=== PATIENT | male | born 1960 | race American Indian/Alaskan Native ===

== ENCOUNTER 2020-01-27 12:50 | Emergency (ER) | payer SELFPAY ==
[2020-01-27 13:03] VITALS: BP 159/101
--- NOTE | 2020-01-27 13:35 | Event Note ---
ED Screening Note ED Screening Note: pt believes he has pancreatitis states he has epigastric abd pain radiating to the back and chest pain states it began yesterday states he drank a pint of vodka and 3-4 beers at 9 AM this morning +nausea +vomiting +diarrhea no fever no blood in stool states he had pancreatitis 3 weeks ago and went to [facility] and reports he had to be admitted PMHx DM, HTN, GERD no allergies to meds This initial assessment/diagnostic orders/clinical plan/treatment(s) is/are subject to change based on patients health status, clinical progression and re- assessment by fellow clinical providers in the ED. Further treatment and workup at subsequent clinical providers discretion. Patient/guardian urged not to elope from the ED as their condition may be serious if not clinically assessed and managed. Initial orders include: labs, EKG
[2020-01-27 14:06] LABS: Basophils # (Auto) 0.1 K/mm3 (0.0-0.1); Eosinophils # (Auto) 0.1 K/mm3 (0.0-0.4); Eosinophils % (Auto) 0.7 % (0.0-4.3); Monocytes # (Auto) 0.4 K/mm3 (0.0-0.8); Monocytes % (Auto) 4.6 % (0.0-7.3)
[2020-01-27 14:27] LABS: Hematocrit 42.2 % (35.5-45.6); Hemoglobin 14.6 gm/dl (11.8-15.2); Lymphocytes # (Auto) 3.8 K/mm3 (1.2-5.4); Lymphocytes % (Auto) 39.6 % (13.4-35.0); Mean Corpuscular HGB Conc 35 % (32-34); Mean Corpuscular Volume 100 fl (84-94); Platelet Count 199 K/mm3 (140-440); Red Blood Count 4.25 M/mm3 (3.65-5.03); Red Cell Distribution Width 14.3 % (13.2-15.2)
[2020-01-27 14:28] LABS: Alanine Aminotransferase 64 units/L (7-56); Albumin 4.5 g/dL (3.9-5); BUN/Creatinine Ratio 13; Blood Urea Nitrogen 9 mg/dL (9-20); Calcium 9.3 mg/dL (8.4-10.2); Hemolysis Index 14
[2020-01-27] MEDS ORDERED: THIAMINE 100 MG, FOLIC ACID 1 MG, MULTIPLE VITAMIN INJ, ADULT 10 ML in SODIUM CHLORIDE ... IV ONE (14:36)
--- NOTE | 2020-01-27 14:39 | Emergency Department Report ---
HPI - General Chief Complaint: Abdominal Pain Time Seen by Provider: 01/27/20 13:32 - HPI HPI: This is a 59-year-old male who presents to the emergency department via EMS with a complaint of upper abdominal pain, and nausea without vomiting, that the jhon ent says has been going on since yesterday. The patient admits to drinking [place] the airport. He has a history of pancreatitis and says that this feels the same. Patient says that he was diagnosed with pancreatitis a few weeks ago and was admitted to a different hospital. He also has a history of [id number] diabetes, hypertension, and GERD. No recent travel or sick contacts at home. He has not taken anything for symptoms prior to presentation. He does not have a primary care physician. The abdominal pain radiates towards the mid back. The pain worsens with certain movements and palpation of the abdomen. No known alleviating factors. Currently he rates his pain at 9 out of 10 in intensity. He denies any fever, dysuria, diarrhea, constipation, chest pain or shortness of breath. ED Past Medical Hx - Past Medical History Hx Hypertension: Yes Hx Diabetes: Yes Hx GERD: Yes Hx Asthma: Yes Additional medical history: PANCREATITS - Surgical History Additional Surgical History: Left knee surgery - Social History Smoking Status: Current Some Day Smoker Substance Use Type: Alcohol - Medications Home Medications: Home Medications Medication Instructions Recorded Confirmed Last Taken Type Acetaminophen [Acetaminophen TAB] 325 mg PO Q4H PRN #10 tablet 12/22/17 Unknown Rx Folic Acid [Folvite] 1 mg PO QDAY #30 tablet 12/22/17 Unknown Rx Thiamine [Vitamin B-1] 100 mg PO QDAY #30 tablet 12/22/17 Unknown Rx ED Review of Systems ROS: Stated complaint: ABDOMEN PAIN Other details as noted in HPI Comment: All other systems reviewed and negative Constitutional: denies: chills, fever Eyes: denies: eye pain, vision change ENT: denies: ear pain, throat pain Respiratory: denies: cough, shortness of breath Cardiovascular: denies: chest pain, palpitations Gastrointestinal: abdominal pain, nausea. denies: vomiting Genitourinary: denies: dysuria, discharge Musculoskeletal: back pain. denies: arthralgia Skin: denies: rash, lesions Neurological: denies: headache, weakness Physical Exam - Physical Exam Vital Signs: Vital Signs 01/27/20 13:00 Temperature 97.9 F Pulse Rate 92 H Respiratory 20 Rate Blood Pressure 159/101 O2 Sat by Pulse 98 Oximetry Physical Exam: GENERAL: The patient is well-developed well-nourished. HENT: Normocephalic. Atraumatic. Patient has moist mucous membranes. EYES: Extraocular motions are intact. NECK: Supple. Trachea is midline. CHEST/LUNGS: Clear to auscultation. There is no respiratory distress noted. HEART/CARDIOVASCULAR: Regular. There is no tachycardia. There is no murmur. ABDOMEN: Abdomen is soft. There is upper abdominal tenderness to palpation. No guarding. Patient has normal bowel sounds. SKIN: Skin is warm and dry. NEURO: The patient is awake, alert, and cooperative. The patient has no focal neurologic deficits. Normal speech. MUSCULOSKELETAL: There is no tenderness or deformity. There is no limitation range of motion. ED Course Vital Signs 01/27/20 13:00 Temperature 97.9 F Pulse Rate 92 H Respiratory 20 Rate Blood Pressure 159/101 O2 Sat by Pulse 98 Oximetry - Reevaluation(s) Reevaluation #1: 01/27/20 18:39 Lab Results 01/27/20 01/27/20 01/27/20 Range/Units 13:48 13:48 13:48 WBC 9.7 (4.5-11.0) K/mm3 RBC 4.25 (3.65-5.03) M/mm3 Hgb 14.6 (11.8-15.2) gm/dl Hct 42.2 (35.5-45.6) % MCV 100 H (84-94) fl MCH 35 H (28-32) pg MCHC 35 H (32-34) % RDW 14.3 (13.2-15.2) % Plt Count 199 (140-440) K/mm3 Lymph % (Auto) 39.6 H (13.4-35.0) % [place] % (Auto) 4.6 (0.0-7.3) % Eos % (Auto) 0.7 (0.0-4.3) % Baso % (Auto) Not Reportable Lymph # (Auto) 3.8 (1.2-5.4) K/mm3 [place] # (Auto) 0.4 (0.0-0.8) K/mm3 Eos # (Auto) 0.1 (0.0-0.4) K/mm3 Baso # (Auto) 0.1 (0.0-0.1) K/mm3 Seg Neutrophils % 54.6 (40.0-70.0) % Seg Neutrophils # 5.2 (1.8-7.7) K/mm3 Sodium 139 (137-145) mmol/L Potassium 3.6 (3.6-5.0) mmol/L Chloride 99.2 (98-107) mmol/L Carbon Dioxide 20 L (22-30) mmol/L Anion Gap 23 mmol/L BUN 9 (9-20) mg/dL Creatinine 0.7 L (0.8-1.3) mg/dL Estimated GFR > 60 ml/min BUN/Creatinine Ratio 13 % Glucose 150 H (75-100) mg/dL Calcium 9.3 (8.4-10.2) mg/dL Total Bilirubin 1.30 H (0.1-1.2) mg/dL AST 77 H (5-40) units/L ALT 64 H (7-56) units/L Alkaline Phosphatase 82 (35-129) units/L Troponin T < 0.010 (0.00-0.029) ng/mL Total Protein 8.0 (6.3-8.2) g/dL Albumin 4.5 (3.9-5) g/dL Albumin/Globulin Ratio 1.3 % Lipase 245 H (13-60) units/L Plasma/Serum Alcohol 0.31 H (0-0.07) % ED Medical Decision Making - Lab Data Result diagrams: 01/27/20 13:48 01/27/20 13:48 - Radiology Data Radiology results: report reviewed CT ABDOMEN AND PELVIS WITH CONTRAST INDICATION / CLINICAL INFORMATION: Abd pain, hx of pancreatitis. TECHNIQUE: Axial CT images were obtained through the abdomen and pelvis after 100 cc of Omnipaque [address] scans at this location are performed using CT dose reduction for ALARA by means of automated exposure control. COMPARISON: None available. FINDINGS: LOWER CHEST: Unremarkable LIVER: Hepatic steatosis. GALLBLADDER/BILIARY TREE: Gallbladder is unremarkable. No common bile duct dilatation. PANCREAS: There is marked dilation of the pancreatic duct distal to an 8 mm calcification in the pancreatic head. Multiple additional pancreatic calcifications are present. These findings are most compatible with sequela of prior pancreatitis. There is no significant peripancreatic inflammatory stranding or organized fluid collection. SPLEEN: Unremarkable ADRENALS: Unremarkable KIDNEYS / URETER: Unremarkable URINARY BLADDER: Unremarkable REPRODUCTIVE ORGANS: Unremarkable STOMACH / SMALL BOWEL: Stomach and small bowel are normal in caliber. No evidence of bowel inflammation. COLON: The colon is unremarkable. The appendix is normal in caliber. LYMPH NODES: No significant adenopathy. VASCULATURE: Mild atherosclerotic calcification without acute abnormality. OTHER: No free air, free fluid, or focal fluid collection is identified. SKELETAL SYSTEM: Chronic appearing superior endplate compression deformity of L2. No acute process. IMPRESSION: 1. No acute process of the abdomen or pelvis. 2. Findings compatible with sequela of prior pancreatitis, as above. No peripancreatic inflammatory stranding or organized peripancreatic fluid collection. 3. Hepatic steatosis. - Medical Decision Making This patient presents to the emergency department with a complaint of abdominal pain that he feels is a return of his pancreatitis. Patient does admit to drinking this morning and was later found to have a blood alcohol level of 0.31 this afternoon. Patient was given some IV fluid resuscitation including banana bag. Patient's labs shows slightly elevated liver enzymes and lipase level. CT scan of the abdomen and pelvis with IV contrast shows sequela of prior pancreatitis but no signs of acute pancreatitis, as well as hepatic steatosis. No acute process of the abdomen or pelvis was found. I spoke to the patient regarding this and told him that we would have to continue watching him due to his elevated blood alcohol level, as the patient says there is no one who can come and get him and take responsibility for him. Shortly after this conversation, the patient eloped from the emergency department. The police have been notified. Critical Care Time: No Critical care attestation.: If time is entered above; I have spent that time in minutes in the direct care of this critically ill patient, excluding procedure time. ED Disposition Clinical Impression: Abdominal pain, Hepatic steatosis, History of pancreatitis, Hypertension Disposition: ELOPED Is pt being admited?: No Instructions: Hypertension (ED) Time of Disposition: 18:42
[2020-01-27] MEDS ORDERED: ONDANSETRON 4 MG/2 ML INJ IV ONE (15:04)
--- NOTE | 2020-01-27 16:21 | Cat Scan Report ---
CT ABDOMEN AND PELVIS WITH CONTRAST INDICATION / CLINICAL INFORMATION: Abd pain, hx of pancreatitis. TECHNIQUE: Axial CT images were obtained through the abdomen and pelvis after 100 cc of Omnipaque [address] scans at this location are performed using CT dose reduction for ALARA by means of automated exposure control. COMPARISON: None available. FINDINGS: LOWER CHEST: Unremarkable LIVER: Hepatic steatosis. GALLBLADDER/BILIARY TREE: Gallbladder is unremarkable. No common bile duct dilatation. PANCREAS: There is marked dilation of the pancreatic duct distal to an 8 mm calcification in the panc reatic head. Multiple additional pancreatic calcifications are present. These findings are most juan carlos tible with sequela of prior pancreatitis. There is no significant peripancreatic inflammatory strandi ng or organized fluid collection. SPLEEN: Unremarkable ADRENALS: Unremarkable KIDNEYS / URETER: Unremarkable URINARY BLADDER: Unremarkable REPRODUCTIVE ORGANS: Unremarkable STOMACH / SMALL BOWEL: Stomach and small bowel are normal in caliber. No evidence of bowel inflammati on. COLON: The colon is unremarkable. The appendix is normal in caliber. LYMPH NODES: No significant adenopathy. VASCULATURE: Mild atherosclerotic calcification without acute abnormality. OTHER: No free air, free fluid, or focal fluid collection is identified. SKELETAL SYSTEM: Chronic appearing superior endplate compression deformity of L2. No acute process. IMPRESSION: 1. No acute process of the abdomen or pelvis. 2. Findings compatible with sequela of prior pancreatitis, as above. No peripancreatic inflammatory s tranding or organized peripancreatic fluid collection. 3. Hepatic steatosis. Signer Name: Joaquín Thomas MD Signed: 01/27/2020 4:17 PM Workstation Name: [id number]
[2020-01-27] MEDS ORDERED: KETOROLAC 30 MG/1 ML INJ IV ONE (16:22)
== END 2020-01-27 17:20 | disposition left against medical advice (07) ==
LOC: ED 12:50
DX: E88.89 Other specified metabolic disorders (principal); K85.90 Acute pancreatitis without necrosis or infection, unspecified; I10 Essential (primary) hypertension; E11.9 Type 2 diabetes mellitus without complications; K21.9 Gastro-esophageal reflux disease without esophagitis; J45.909 Unspecified asthma, uncomplicated; F17.200 Nicotine dependence, unspecified, uncomplicated; Z79.899 Other long term (current) drug therapy
CPT/HCPCS: 36415; 74177; 80053; 83690; 84484; 85025; 93005; 96365; 96366; 96375; 99284; J1885; J2405; J3411; J7030; Q9967; 80320; G0480

== ENCOUNTER 2020-11-06 17:46 | Emergency (ER) | payer SELFPAY ==
[2020-11-06 18:38] VITALS: BP 156/87
[2020-11-06] MEDS ORDERED: SODIUM CHLORIDE 0.9% 1000 ML 1,000 ML IV ONE (18:43)
[2020-11-06] MEDS ORDERED: DICYCLOMINE 20 MG TAB PO ONE (18:43)
[2020-11-06] MEDS ORDERED: FAMOTIDINE 20 MG/2 ML INJ IV ONE (18:43)
[2020-11-06] MEDS ORDERED: ONDANSETRON 4 MG/2 ML INJ IV ONE (18:43)
[2020-11-06] MEDS ORDERED: MORPHINE 4 MG/1 ML INJ IV ONE ×2 (18:43→22:12)
[2020-11-06 19:24] LABS: Basophils # (Auto) 0.2 K/mm3 (0.0-0.1); Basophils % (Auto) 1.7 % (0.0-1.8); Eosinophils # (Auto) 0.1 K/mm3 (0.0-0.4); Eosinophils % (Auto) 1.2 % (0.0-4.3); Hemoglobin 13.8 gm/dl (11.8-15.2); Lymphocytes # (Auto) 4.3 K/mm3 (1.2-5.4); Lymphocytes % (Auto) 45.8 % (13.4-35.0); Mean Corpuscular HGB Conc 34 % (32-34); Mean Corpuscular Volume 97 fl (84-94); Monocytes # (Auto) 0.5 K/mm3 (0.0-0.8); Monocytes % (Auto) 5.8 % (0.0-7.3); Platelet Count 183 K/mm3 (140-440); Red Blood Count 4.24 M/mm3 (3.65-5.03); Red Cell Distribution Width 15.2 % (13.2-15.2)
[2020-11-06 19:26] LABS: Alanine Aminotransferase 28 units/L (7-56); Albumin 4.8 g/dL (3.9-5); BUN/Creatinine Ratio 17; Blood Urea Nitrogen 15 mg/dL (9-20); Calcium 9.1 mg/dL (8.4-10.2); Hemolysis Index 6
--- NOTE | 2020-11-06 21:11 | Cat Scan Report ---
CT ABDOMEN AND PELVIS WITH CONTRAST HISTORY: abd pain with n/v. COMPARISON: None. TECHNIQUE: CT images of the abdomen and pelvis were obtained following administration of intravenous contrast. All CT scans at this location are performed using CT dose reduction for ALARA by means of automated exposure control. CONTRAST: 100 ml of intravenous contrast administered. FINDINGS: Lungs/bones: Lung bases are clear Abdomen/pelvis: Diffuse fatty infiltration the liver. Nodularity seen throughout the liver suggestin g cirrhosis. No enhancing liver lesion is seen. There is marked dilatation of the pancreatic duct. Mu ltiple pancreatic calcifications are seen. Possible obstructing duct in the proximal pancreatic duct near the pancreatic head measures 9 mm. Adrenal glands appear normal. Kidneys appear normal. No bowel obstruction is seen. No focal inflammatory change. No free air IMPRESSION: 1. Prior pancreatitis. There is marked dilatation of the pancreatic duct with large stone near the pa ncreatic head and neck. This was also seen on prior examination. 2. Diffuse fatty infiltration liver. Nodular surface suggesting cirrhosis. 3. Hepatic steatosis. Signer Name: Yomi Day MD Signed: 11/06/2020 9:07 PM Workstation Name: [id number]
--- NOTE | 2020-11-06 23:42 | Emergency Department Report ---
ED Abdominal Pain HPI - General Chief Complaint: Abdominal Pain Stated Complaint: ABD PAIN Time Seen by Provider: 11/06/20 18:36 Source: patient, EMS Mode of arrival: Ambulatory Limitations: No Limitations - History of Present Illness Initial Comments: This is a 60-year-old male nontoxic, well nourished in appearance, no acute signs of distress presents to the ED with c/o of nausea and abdominal pain several days. Patient denies any vomiting. HX of alcohol and last alcoholic drug was yesterday. Patient describes abdominal pain as cramping and aching with level of 10/10 to RUQ. Patient denies chest pain, short of breath, fever, hemoptysis, blood in stool, chills, headache, stiff neck, numbness or tingling. Patient denies any diarrhea or constipation. Denies any blood in stool. Patient denies any recent travels. Patient denies any drug allergies. MD Complaint: abdominal pain -: days(s) Location: RUQ Radiation: none Migration to: no migration Severity: mild Severity scale (0 -10): 10 Quality: cramping, aching Consistency: constant Improves With: nothing Worsens With: nothing Associated Symptoms: nausea. denies: vomiting, diarrhea, fever, chills, constipation, dysuria, hematemesis, hematochezia, melena, hematuria, anorexia, syncope - Related Data Previous Rx's Medication Instructions Recorded Last Taken Type Acetaminophen [Acetaminophen TAB] 325 mg PO Q4H PRN #10 tablet 12/22/17 Unknown Rx Folic Acid [Folvite] 1 mg PO QDAY #30 tablet 12/22/17 Unknown Rx Thiamine [Vitamin B-1] 100 mg PO QDAY #30 tablet 12/22/17 Unknown Rx Acetaminophen/Codeine [Tylenol 1 tab PO Q6H PRN #12 tab 11/06/20 Unknown Rx /Codeine # 3 tab] Ondansetron [Zofran Odt] 4 mg PO Q8HR PRN #12 tab.rapdis 11/06/20 Unknown Rx Allergies Allergy/AdvReac Type Severity Reaction Status Date / Time No Known Allergies Allergy Verified 01/27/20 13:01 ED Review of Systems ROS: Stated complaint: ABD PAIN Other details as noted in HPI Comment: All other systems reviewed and negative Constitutional: denies: chills, fever Eyes: denies: eye pain, eye discharge, vision change ENT: denies: ear pain, throat pain Respiratory: denies: cough, shortness of breath, wheezing Cardiovascular: denies: chest pain, palpitations Endocrine: no symptoms reported Gastrointestinal: abdominal pain, nausea. denies: vomiting, diarrhea, constipation, hematemesis, melena, hematochezia Genitourinary: denies: urgency, dysuria Musculoskeletal: denies: back pain, joint swelling, arthralgia Skin: denies: rash, lesions Neurological: denies: headache, weakness, paresthesias Psychiatric: denies: anxiety, depression Hematological/Lymphatic: denies: easy bleeding, easy bruising ED Past Medical Hx - Past Medical History Hx Hypertension: Yes Hx Diabetes: Yes Hx GERD: Yes Hx Asthma: Yes Additional medical history: PANCREATITS - Surgical History Additional Surgical History: Left knee surgery - Social History Smoking Status: Current Some Day Smoker Substance Use Type: Alcohol - Medications Home Medications: Home Medications Medication Instructions Recorded Confirmed Last Taken Type Acetaminophen [Acetaminophen TAB] 325 mg PO Q4H PRN #10 tablet 12/22/17 Unknown Rx Folic Acid [Folvite] 1 mg PO QDAY #30 tablet 12/22/17 Unknown Rx Thiamine [Vitamin B-1] 100 mg PO QDAY #30 tablet 12/22/17 Unknown Rx Acetaminophen/Codeine [Tylenol 1 tab PO Q6H PRN #12 tab 11/06/20 Unknown Rx /Codeine # 3 tab] Ondansetron [Zofran Odt] 4 mg PO Q8HR PRN #12 tab.rapdis 11/06/20 Unknown Rx ED Physical Exam - General Limitations: No Limitations General appearance: alert, in no apparent distress - Head Head exam: Present: atraumatic, normocephalic - Eye Eye exam: Present: normal appearance - Neck Neck exam: Present: normal inspection, full ROM. Absent: lymphadenopathy - Respiratory Respiratory exam: Present: normal lung sounds bilaterally. Absent: respiratory distress, wheezes, rales, rhonchi, stridor, chest wall tenderness, accessory muscle use, decreased breath sounds, prolonged expiratory - Cardiovascular Cardiovascular Exam: Present: regular rate, normal rhythm, normal heart sounds. Absent: bradycardia, tachycardia, irregular rhythm, systolic murmur, diastolic murmur, rubs, gallop - GI/Abdominal GI/Abdominal exam: Present: soft, tenderness (RUQ), normal bowel sounds. Absent: distended, guarding, rebound, rigid, diminished bowel sounds - Extremities Exam Extremities exam: Present: normal inspection, full ROM - Back Exam Back exam: Present: normal inspection, full ROM. Absent: tenderness, CVA tenderness (R), CVA tenderness (L), muscle spasm, paraspinal tenderness, vertebral tenderness, rash noted - Neurological Exam Neurological exam: Present: alert, oriented X3, normal gait - Psychiatric Psychiatric exam: Present: normal affect, normal mood - Skin Skin exam: Present: warm, dry, intact, normal color. Absent: rash ED Course Vital Signs 11/06/20 18:33 Temperature 97.9 F Pulse Rate 92 H Respiratory 18 Rate Blood Pressure 156/87 O2 Sat by Pulse 97 Oximetry - Reevaluation(s) Reevaluation #1: 11/06/20 23:43 Patient is speaking in full sentences with no signs of distress noted. - Consultations Consultation #1: 11/06/20 23:32 Patient has been consulted with Dr. Yarbrough about patient history, physical exam, and labs/imaging results and agrees to ED plan of care with GI consult. Consultation #2: 11/06/20 23:42 Patient has been consulted with Dr. Montenegro ([employer] modeling agent) about patient history, physical exam, and labs/imaging results and stated patient should be discharged with pain control and follow-up. ED Medical Decision Making - Lab Data Result diagrams: 11/06/20 18:40 11/06/20 18:40 Lab Results 11/06/20 11/06/20 11/06/20 Range/Units 18:40 18:40 Unknown WBC 9.4 (4.5-11.0) K/mm3 RBC 4.24 (3.65-5.03) M/mm3 Hgb 13.8 (11.8-15.2) gm/dl Hct 41.0 (35.5-45.6) % MCV 97 H (84-94) fl MCH 33 H (28-32) pg MCHC 34 (32-34) % RDW 15.2 (13.2-15.2) % Plt Count 183 (140-440) K/mm3 Lymph % (Auto) 45.8 H (13.4-35.0) % [place] % (Auto) 5.8 (0.0-7.3) % Eos % (Auto) 1.2 (0.0-4.3) % Baso % (Auto) 1.7 (0.0-1.8) % Lymph # (Auto) 4.3 (1.2-5.4) K/mm3 [place] # (Auto) 0.5 (0.0-0.8) K/mm3 Eos # (Auto) 0.1 (0.0-0.4) K/mm3 Baso # (Auto) 0.2 H (0.0-0.1) K/mm3 Seg Neutrophils % 45.5 (40.0-70.0) % Seg Neutrophils # 4.3 (1.8-7.7) K/mm3 Sodium 142 (137-145) mmol/L Potassium 4.1 (3.6-5.0) mmol/L Chloride 102.6 (98-107) mmol/L Carbon Dioxide 17 L (22-30) mmol/L Anion Gap 27 mmol/L BUN 15 (9-20) mg/dL Creatinine 0.9 (0.8-1.3) mg/dL Estimated GFR > 60 ml/min BUN/Creatinine Ratio 17 % Glucose 113 H (75-100) mg/dL Calcium 9.1 (8.4-10.2) mg/dL Total Bilirubin 0.80 (0.1-1.2) mg/dL AST 49 H (5-40) units/L ALT 28 (7-56) units/L Alkaline Phosphatase 93 (35-129) units/L Total Protein 8.7 H (6.3-8.2) g/dL Albumin 4.8 (3.9-5) g/dL Albumin/Globulin Ratio 1.2 % Lipase 40 (13-60) units/L Urine Color Straw (Yellow) Urine Turbidity Clear (Clear) Urine pH 5.0 (5.0-7.0) Ur Specific [place] 1.043 H (1.003-1.030) Urine Protein <15 mg/dl (Negative) mg/dL Urine Glucose (UA) Neg (Negative) mg/dL Urine Ketones Tr (Negative) mg/dL Urine Blood Sm (Negative) Urine Nitrite Neg (Negative) Urine Bilirubin Neg (Negative) Urine Urobilinogen < 2.0 (<2.0) mg/dL Ur Leukocyte Esterase Neg (Negative) Urine WBC (Auto) 1.0 (0.0-6.0) /HPF Urine RBC (Auto) 5.0 (0.0-6.0) /HPF U Epithel Cells (Auto) < 1.0 (0-13.0) /HPF Urine Bacteria (Auto) 1+ (Negative) /HPF Urine Mucus Few /HPF - Radiology Data [facility] [address] [place] [address] Cat Scan Report Signed Patient: LISSETTE BLANCO MR#: [id number] : 1960 Acct:[id number] Age/Sex: 60 / M ADM Date: 11/06/20 Loc: ED Attending Dr: Ordering Physician: KIRILL JAIME NP Date of Service: 11/06/20 Procedure(s): CT abdomen pelvis w con Accession Number(s): [id number] cc: KIRILL JAIME NP CT ABDOMEN AND PELVIS WITH CONTRAST HISTORY: abd pain with n/v. COMPARISON: None. TECHNIQUE: CT images of the abdomen and pelvis were obtained following administration of intravenous contrast. All CT scans at this location are performed using CT dose reduction for ALARA by means of automated exposure control. CONTRAST: 100 ml of intravenous contrast administered. FINDINGS: Lungs/bones: Lung bases are clear Abdomen/pelvis: Diffuse fatty infiltration the liver. Nodularity seen throughout the liver suggesting cirrhosis. No enhancing liver lesion is seen. There is marked dilatation of the pancreatic duct. Multiple pancreatic calcifications are seen. Possible obstructing duct in the proximal pancreatic duct near the pancreatic head measures 9 mm. Adrenal glands appear normal. Kidneys appear normal. No bowel obstruction is seen. No focal i nflammatory change. No free air IMPRESSION: 1. Prior pancreatitis. There is marked dilatation of the pancreatic duct with large stone near the pancreatic head and neck. This was also seen on prior examination. 2. Diffuse fatty infiltration liver. Nodular surface suggesting cirrhosis. 3. Hepatic steatosis. Signer Name: Yomi Day MD Signed: 11/06/2020 9:07 PM Workstation Name: [id number] Transcribed By: RACHEL Dictated By: ROSE DAY MD Electronically Authenticated By: ROSE DAY MD Signed Date/Time: 11/06/202106 DD/ 02 TD/TT: - Medical Decision Making This is a 60-year-old male that presents with chronic pancreatitis. Patient is stable and was examined by me. Labs obtained. UA obtained. CT of abdomen obtained and dictated by the radiologist. Patient is notified of the report with no questions noted by the patient. Vital signs are stable prior to discharge. Patient received medical treatment in the ED which patient stated symptoms has resovled and subsided. Was instructed note to operate any machinery due to possible drowsiness and stated someone will drive the patient home. A by mouth challenge has been obtained and patient tolerated well with no nausea vomiting. Educated patient on alcohol abuse and pancreatitis. Patient was also instructed to Follow-up with a modeling agent doctor in 3-5 days or if symptoms worsen and continue return to emergency room as soon as possible. At time of disch arge, the patient does not seem toxic or ill in appearance. No acute signs of distress noted. Patient agrees to discharge treatment plan of care. No further questions noted by the patient. Critical care attestation.: If time is entered above; I have spent that time in minutes in the direct care of this critically ill patient, excluding procedure time. ED Disposition Clinical Impression: Chronic pancreatitis Qualifiers: Pancreatitis type: alcohol induced Qualified Code(s): K86.0 - Alcohol-induced chronic pancreatitis Disposition: 01 HOME / SELF CARE / HOMELESS Is pt being admited?: No Does the pt Need Aspirin: No Condition: Stable Instructions: Chronic Pancreatitis Additional Instructions: Follow-up with a modeling agent doctor in 3-5 days or if symptoms worsen and continue return to emergency room as soon as possible. Do not operate any machinery while taking Tylenol with codeine as this may cause drowsiness. Prescriptions: Acetaminophen/Codeine [Tylenol /Codeine # 3 tab] 1 tab PO Q6H PRN #12 tab PRN Reason: Pain , Severe (7-10) Ondansetron [Zofran Odt] 4 mg PO Q8HR PRN #12 tab.rapdis PRN Reason: Nausea Referrals: PRIMARY MD [id number] [Primary Care Provider] - 3-5 Days ELENO RAZA MD [Staff Physician] - 3-5 Days [facility] [Provider Group] - 3-5 Days Time of Disposition: 23:58
[2020-11-06 23:50] LABS: Bacteria,Urine 1+ /HPF (Negative); Bilirubin,Urine NEG (Negative); Blood,Urine SM (Negative); Color,Urine Straw (Yellow); Mucus,Urine FEW /HPF; Protein,Urine <15 mg/dL mg/dL (Negative); Urobilinogen,Urine < 2.0 mg/dL (<2.0)
== END 2020-11-07 01:06 | disposition home or self-care (01) ==
LOC: ED 17:46
DX: K86.1 Other chronic pancreatitis (principal); I10 Essential (primary) hypertension; E11.9 Type 2 diabetes mellitus without complications; K21.9 Gastro-esophageal reflux disease without esophagitis; J45.909 Unspecified asthma, uncomplicated; F17.200 Nicotine dependence, unspecified, uncomplicated; Z98.890 Other specified postprocedural states; Z72.89 Other problems related to lifestyle; Z79.899 Other long term (current) drug therapy
CPT/HCPCS: 36415; 74177; 80053; 81001; 83690; 85025; 96361; 96374; 96375; 96376; 99284; J2270; J2405; J7030; Q9967

== ENCOUNTER 2021-01-29 10:30 | Emergency (ER) | payer SELFPAY ==
[2021-01-29] MEDS ORDERED: LORazepam 2 MG/ML VIAL IV PRN ×3 (11:00)
--- NOTE | 2021-01-29 11:01 | Emergency Department Report ---
<CARIN SEVERINO - Last Filed: 01/29/21 18:33> ED General Adult HPI - General Chief complaint: Abdominal Pain Stated complaint: ABD PAIN Time Seen by Provider: 01/29/21 10:55 - Related Data Previous Rx's Medication Instructions Recorded Last Taken Type Folic Acid [Folvite] 1 mg PO QDAY #30 tablet 01/29/21 Unknown Rx Multivitamin with Folic Acid [[facility] 400 mcg PO QDAY #30 tablet 01/29/21 Unknown Rx One Daily Essential Tablet] Ondansetron [Zofran ODT TAB] 4 mg PO Q8HR PRN #12 tab.rapdis 01/29/21 Unknown Rx Pantoprazole [Protonix] 40 mg PO QDAY #30 tablet 01/29/21 Unknown Rx Thiamine [Vitamin B-1] 100 mg PO QDAY #30 tablet 01/29/21 Unknown Rx chlordiazePOXIDE [Librium] 25 mg PO Q6H PRN #25 capsule 01/29/21 Unknown Rx Allergies Allergy/AdvReac Type Severity Reaction Status Date / Time No Known Allergies Allergy Verified 01/27/20 13:01 ED Past Medical Hx - Medications Home Medications: Home Medications Medication Instructions Recorded Confirmed Last Taken Type Folic Acid [Folvite] 1 mg PO QDAY #30 tablet 01/29/21 Unknown Rx Multivitamin with Folic Acid [[facility] 400 mcg PO QDAY #30 tablet 01/29/21 Unknown Rx One Daily Essential Tablet] Ondansetron [Zofran ODT TAB] 4 mg PO Q8HR PRN #12 tab.rapdis 01/29/21 Unknown Rx Pantoprazole [Protonix] 40 mg PO QDAY #30 tablet 01/29/21 Unknown Rx Thiamine [Vitamin B-1] 100 mg PO QDAY #30 tablet 01/29/21 Unknown Rx chlordiazePOXIDE [Librium] 25 mg PO Q6H PRN #25 capsule 01/29/21 Unknown Rx ED Course - Consultations Consultation #1: 01/29/21 18:[address] Perez for admission. States he will come down and examine the patient. ED Medical Decision Making - Lab Data Result diagrams: 01/29/21 11:00 01/29/21 17:44 ED Disposition Clinical Impression: Alcoholic liver disease, Acute abdominal pain, Dehydration, Nausea and vomiting, Chronic pancreatitis due to chronic alcoholism Disposition: 09 ADMITTED INPATIENT Condition: Good Instructions: Alcoholic Liver Disease Additional Instructions: Recommend that patient discontinue alcohol consumption. CT scan of the abdomen pelvis today demonstrated evidence of liver cirrhosis. Long-term consumption of alcohol will likely lead to liver failure, possibly cancer, and will likely be a significant risk factor for , disability, paralysis, and loss of quality of life. Do not take Motrin, ibuprofen, Naprosyn, Aleve, and avoid consumption of alcohol tobacco, smoke products, heavy and spicy foods. Do not take them for medication for the next 2 days if patient takes this medication. Strongly recommend that the patient abstain from alcohol consumption, take the vitamins as directed, Protonix, nausea medication as directed, and follow-up w ith an outpatient primary care doctor or leather stamper within the next 7 days for repeat checkup and evaluation. Please have your primary care doctor or GI physician contact the medical records department to obtain now copies of laboratory studies and radiology studies. Symptoms today likely related to alcoholic liver disease, and probable alcohol induced gastritis/stomach irritation. Please return to the emergency room right away with new pain, worsened pain, migration of pain, projectile vomiting, change in mental status, confusion, inability tolerate liquid feeds, defecation of blood, or any new, worsened or different symptoms not present on the initial emergency room evaluation Prescriptions: Multivitamin with Folic Acid [[facility] One Daily Essential Tablet] 400 mcg PO QDAY #30 tablet Folic Acid [Folvite] 1 mg PO QDAY #30 tablet chlordiazePOXIDE [Librium] 25 mg PO Q6H PRN #25 capsule PRN Reason: Alcohol Withdrawal Pantoprazole [Protonix] 40 mg PO QDAY #30 tablet Thiamine [Vitamin B-1] 100 mg PO QDAY #30 tablet Ondansetron [Zofran ODT TAB] 4 mg PO Q8HR PRN #12 tab.rapdis PRN Reason: Nausea Referrals: [facility] [Provider Group] - 3-5 Days [facility] [Provider Group] - 3-5 Days <CHRIS CLARK - Last Filed: 01/30/21 15:11> ED General Adult HPI - General PUI?: No Source: patient, EMS (Verbal report received from emergency medical services. EMS documentation not available at time of chart dictation ), RN notes reviewed, old records reviewed Mode of arrival: Stretcher Limitations: No Limitations - History of Present Illness Initial comments: The patient is a 60-year-old gentleman. He has a history of alcohol abuse, pancreatitis, and known pancreatic duct stone. The patient presents to the ER today with complaints of diffuse abdominal pain, epigastric pain, nausea and vomiting. The patient reports his symptoms started yesterday. Patient reports emesis is clear, yellow, pinkish and then red. He thinks he may have thrown up blood. He is not certain. He denies bright red blood per rectum. The patient did not fall or hit his head. His last alcoholic beverage was yesterday. Abdominal pain is sharp and throbbing, increases with palpation, decreases with rest. The patient states is not homicidal or suicidal. -: Gradual, days(s) Location: abdomen Radiation: non-radiation Quality: aching Consistency: constant Improves with: medication, rest Worsens with: other ED Review of Systems ROS: Stated complaint: ABD PAIN Other details as noted in HPI Constitutional: weakness, other (Denies loss of taste and smell). denies: fever Eyes: denies: eye discharge ENT: denies: hearing loss Respiratory: denies: cough Cardiovascular: denies: chest pain Gastrointestinal: abdominal pain, nausea, vomiting, hematemesis. denies: melena, hematochezia Genitourinary: denies: dysuria Musculoskeletal: back pain Neurological: weakness Psychiatric: anxiety. denies: homicidal thoughts, suicidal thoughts ED Past Medical Hx - Past Medical History Hx Hypertension: Yes Hx Diabetes: Yes Hx GERD: Yes Hx Asthma: Yes Additional medical history: PANCREATITS - Surgical History Additional Surgical History: Left knee surgery - Social History Smoking Status: Current Some Day Smoker Substance Use Type: Alcohol ED Physical Exam - General Limitations: No Limitations General appearance: alert, anxious, in distress - Head Head exam: Present: atraumatic, normocephalic - Eye Eye exam: Present: normal appearance, EOMI. Absent: nystagmus - ENT ENT exam: Present: normal exam, normal orophraynx, mucous membranes moist, normal external ear exam - Neck Neck exam: Present: normal inspection, full ROM. Absent: tenderness, meningismus - Respiratory Respiratory exam: Present: normal lung sounds bilaterally. Absent: respiratory distress, wheezes, rales, rhonchi, stridor, decreased breath sounds - Cardiovascular Cardiovascular Exam: Present: regular rate, normal rhythm, normal heart sounds. Absent: bradycardia, tachycardia, irregular rhythm, systolic murmur, diastolic murmur, rubs, gallop - GI/Abdominal GI/Abdominal exam: Present: soft, tenderness, normal bowel sounds. Absent: distended, guarding, rebound, rigid, pulsatile mass - Rectal Rectal exam: Present: normal inspection, heme (-) stool, other (Chaperoned by Abbie Cleveland). Absent: heme (+) stool, black stool, bloody stool, fecal impaction, hemorrhoids - Extremities Exam Extremities exam: Present: normal inspection, full ROM, other (2+ pulses noted in the bilateral upper and lower extremities. There is no palpable cord. negative Homans sign. Muscular compartments are soft. The pelvis is stable.). Absent: pedal edema, calf tenderness - Back Exam Back exam: Present: normal inspection, full ROM. Absent: tenderness, CVA tenderness (R), CVA tenderness (L), paraspinal tenderness, vertebral tenderness - Neurological Exam Neurological exam: Present: alert, oriented X3, normal gait, other (No facial droop. Tongue midline. Extraocular movements intact bilaterally. Facial sensation intact to light touch in V1, V2, V3 distribution bilaterally. 5 and a 5 strength in 4 extremities. Sensation intact to light touch in 4 extremities.). Absent: motor sensory deficit - Psychiatric Psychiatric exam: Present: anxious. Absent: homicidal ideation, suicidal ideation - Skin Skin exam: Present: warm, dry, intact, normal color. Absent: rash ED Course Vital Signs 01/29/21 01/29/21 01/29/21 11:12 11:13 11:15 Temperature Pulse Rate Respiratory Rate Blood Pressure 149/88 Blood Pressure [Left] O2 Sat by Pulse 98 98 97 Oximetry 01/29/21 01/29/21 01/29/21 11:31 11:45 12:01 Temperature Pulse Rate Respiratory Rate Blood Pressure 149/88 149/88 149/88 Blood Pressure [Left] O2 Sat by Pulse 98 97 99 Oximetry 01/29/21 01/29/21 01/29/21 12:15 12:31 12:45 Temperature Pulse Rate 88 86 Respiratory 19 17 Rate Blood Pressure 150/86 144/84 144/84 Blood Pressure [Left] O2 Sat by Pulse 96 99 97 Oximetry 01/29/21 01/29/21 01/29/21 13:05 13:15 13:31 Temperature Pulse Rate 96 H 87 94 H Respiratory 21 16 21 Rate Blood Pressure 144/84 144/84 144/84 Blood Pressure [Left] O2 Sat by Pulse 99 96 97 Oximetry 01/29/21 01/29/21 01/29/21 13:45 13:50 14:01 Temperature 98.7 F Pulse Rate 92 H 90 91 H Respiratory 20 16 20 Rate Blood Pressure 144/84 141/78 Blood Pressure 149/81 [Left] O2 Sat by Pulse 96 97 96 Oximetry 01/29/21 01/29/21 01/29/21 14:15 14:31 14:45 Temperature Pulse Rate 92 H 94 H 97 H Respiratory 18 16 21 Rate Blood Pressure 141/78 141/78 141/78 Blood Pressure [Left] O2 Sat by Pulse 97 97 99 Oximetry 01/29/21 01/29/21 01/29/21 15:01 15:15 15:31 Temperature Pulse Rate 95 H Respiratory 14 Rate Blood Pressure 141/78 141/78 141/78 Blood Pressure [Left] O2 Sat by Pulse 97 98 97 Oximetry 01/29/21 01/29/21 01/29/21 15:45 16:01 16:15 Temperature Pulse Rate 90 94 H Respiratory 17 17 Rate Blood Pressure 141/78 141/78 131/65 Blood Pressure [Left] O2 Sat by Pulse 97 97 94 Oximetry 01/29/21 01/29/21 01/29/21 16:31 16:45 17:01 Temperature Pulse Rate Respiratory 17 13 18 Rate Blood Pressure 134/67 144/79 134/72 Blood Pressure [Left] O2 Sat by Pulse 95 96 98 Oximetry 01/29/21 01/29/21 01/29/21 17:15 17:31 17:45 Temperature Pulse Rate Respiratory 19 19 19 Rate Blood Pressure 131/65 125/62 133/73 Blood Pressure [Left] O2 Sat by Pulse 95 96 98 Oximetry 01/29/21 01/29/21 01/29/21 18:00 18:16 18:30 Temperature Pulse Rate Respiratory 18 15 16 Rate Blood Pressure 133/73 144/77 126/62 Blood Pressure [Left] O2 Sat by Pulse 95 95 98 Oximetry - Reevaluation(s) Reevaluation #1: 01/29/21 13:45 Differential diagnosis, including but not limited to: Pancreatitis, alcoholic gastritis, GERD, gastritis, hiatal hernia, pneumonia, Farida-Lopez tear, alcohol dependence Assessment and plan: 60-year-old gentleman, who was afebrile, with reassuring vital signs, clinically sober, who does not meet criteria for 1013 or 2013, with a complaint of abdominal pain, and report of hematemesis. He has no blood on rectal examination. Laboratory studies unremarkable with exception of metabolic acidosis, likely secondary to nausea and vomiting, malnutrition, and alcoholism. CT scan abdomen pelvis today essentially unchanged from prior CT scans. X-ray the chest is unremarkable. No active vomiting in my exam. He will be given fluids, banana bag, started on alcohol withdrawal protocol, repeat basic metabolic panel is pending. Presuming resolution of anion gap acidosis, and no further nausea or vomiting, this patient would be medically suitable to follow- up with an outpatient primary care doctor and an outpatient GI physician, for further work-up of his presumed alcoholic liver disease. 01/29/21 14:20 No active vomiting. Care was transferred to the oncoming ER physician, Dr Sole Severino, to follow-up on repeat basic metabolic panel. Presuming improvement/resolution of metabolic acidosis/anion gap acidosis, we would consider this patient medically suitable for discharge with outpatient follow-up 01/30/21 15:10 ED Medical Decision Making - Lab Data Result diagrams: 01/29/21 11:00 01/29/21 17:44 Vital Signs 01/29/21 01/29/21 01/29/21 11:12 11:13 11:15 Blood Pressure 149/88 O2 Sat by Pulse 98 98 97 Oximetry 01/29/21 01/29/21 01/29/21 11:31 11:45 12:01 Blood Pressure 149/88 149/88 149/88 O2 Sat by Pulse 98 97 99 Oximetry 01/29/21 12:15 Blood Pressure 150/86 O2 Sat by Pulse 96 Oximetry Lab Results 01/29/21 01/29/21 01/29/21 Range/Units 11:00 11:00 11:00 WBC 10.7 (4.5-11.0) K/mm3 RBC 3.86 (3.65-5.03) M/mm3 Hgb 12.2 (11.8-15.2) gm/dl Hct 37.6 (35.5-45.6) % MCV 97 H (84-94) fl MCH 32 (28-32) pg MCHC 32 (32-34) % RDW 15.2 (13.2-15.2) % Plt Count 150 (140-440) K/mm3 Lymph % (Auto) 16.1 (13.4-35.0) % Piute % (Auto) 6.6 (0.0-7.3) % Eos % (Auto) 0.2 (0.0-4.3) % Baso % (Auto) 1.0 (0.0-1.8) % Lymph # (Auto) 1.7 (1.2-5.4) K/mm3 Piute # (Auto) 0.7 (0.0-0.8) K/mm3 Eos # (Auto) 0.0 (0.0-0.4) K/mm3 Baso # (Auto) 0.1 (0.0-0.1) K/mm3 Seg Neutrophils % 76.1 H (40.0-70.0) % Seg Neutrophils # 8.2 H (1.8-7.7) K/mm3 PT 14.8 (12.2-14.9) Sec. INR 1.05 (0.87-1.13) Sodium 141 (137-145) mmol/L Potassium 4.2 (3.6-5.0) mmol/L Chloride 99.2 (98-107) mmol/L Carbon Dioxide 18 L (22-30) mmol/L Anion Gap 28 mmol/L BUN 13 (9-20) mg/dL Creatinine 0.7 L (0.8-1.3) mg/dL Estimated GFR > 60 ml/min BUN/Creatinine Ratio 19 % Glucose 97 (75-100) mg/dL Calcium 8.0 L (8.4-10.2) mg/dL Total Bilirubin 0.60 (0.1-1.2) mg/dL Direct Bilirubin < 0.2 (0-0.2) mg/dL Indirect Bilirubin 0.4 mg/dL AST 53 H (5-40) units/L ALT 36 (7-56) units/L Alkaline Phosphatase 68 (35-129) units/L Total Protein 7.6 (6.3-8.2) g/dL Albumin 4.4 (3.9-5) g/dL Albumin/Globulin Ratio 1.4 % Lipase 21 (13-60) units/L Urine Color (Yellow) Urine Turbidity (Clear) Urine pH (5.0-7.0) Ur Specific Meigs (1.003-1.030) Urine Protein (Negative) mg/dL Urine Glucose (UA) (Negative) mg/dL Urine Ketones (Negative) mg/dL Urine Blood (Negative) Urine Nitrite (Negative) Urine Bilirubin (Negative) Urine Urobilinogen (<2.0) mg/dL Ur Leukocyte Esterase (Negative) Urine WBC (Auto) (0.0-6.0) /HPF Urine RBC (Auto) (0.0-6.0) /HPF U Epithel Cells (Auto) (0-13.0) /HPF Urine Mucus /HPF Plasma/Serum Alcohol (0-0.07) % 01/29/21 01/29/21 Range/Units 11:00 12:13 WBC (4.5-11.0) K/mm3 RBC (3.65-5.03) M/mm3 Hgb (11.8-15.2) gm/dl Hct (35.5-45.6) % MCV (84-94) fl MCH (28-32) pg MCHC (32-34) % RDW (13.2-15.2) % Plt Count (140-440) K/mm3 Lymph % (Auto) (13.4-35.0) % Piute % (Auto) (0.0-7.3) % Eos % (Auto) (0.0-4.3) % Baso % (Auto) (0.0-1.8) % Lymph # (Auto) (1.2-5.4) K/mm3 Piute # (Auto) (0.0-0.8) K/mm3 Eos # (Auto) (0.0-0.4) K/mm3 Baso # (Auto) (0.0-0.1) K/mm3 Seg Neutrophils % (40.0-70.0) % Seg Neutrophils # (1.8-7.7) K/mm3 PT (12.2-14.9) Sec. INR (0.87-1.13) Sodium (137-145) mmol/L Potassium (3.6-5.0) mmol/L Chloride (98-107) mmol/L Carbon Dioxide (22-30) mmol/L Anion Gap mmol/L BUN (9-20) mg/dL Creatinine (0.8-1.3) mg/dL Estimated GFR ml/min BUN/Creatinine Ratio % Glucose (75-100) mg/dL Calcium (8.4-10.2) mg/dL Total Bilirubin (0.1-1.2) mg/dL Direct Bilirubin (0-0.2) mg/dL Indirect Bilirubin mg/dL AST (5-40) units/L ALT (7-56) units/L Alkaline Phosphatase (35-129) units/L Total Protein (6.3-8.2) g/dL Albumin (3.9-5) g/dL Albumin/Globulin Ratio % Lipase (13-60) units/L Urine Color Yellow (Yellow) Urine Turbidity Clear (Clear) Urine pH 5.0 (5.0-7.0) Ur Specific Meigs 1.019 (1.003-1.030) Urine Protein <15 mg/dl (Negative) mg/dL Urine Glucose (UA) Neg (Negative) mg/dL Urine Ketones 20 (Negative) mg/dL Urine Blood Neg (Negative) Urine Nitrite Neg (Negative) Urine Bilirubin Neg (Negative) Urine Urobilinogen < 2.0 (<2.0) mg/dL Ur Leukocyte Esterase Neg (Negative) Urine WBC (Auto) 1.0 (0.0-6.0) /HPF Urine RBC (Auto) < 1.0 (0.0-6.0) /HPF U Epithel Cells (Auto) 1.0 (0-13.0) /HPF Urine Mucus Few /HPF Plasma/Serum Alcohol 0.07 (0-0.07) % - EKG Data -: EKG Interpreted by Mt EKG shows normal: sinus rhythm Rate: normal - EKG Data 01/29/21 13:40 The EKG is interpreted at 11: 37 Sinus rhythm, 80 bpm. Normal axis, normal intervals, left ventricular hypertrophy, motion artifact. QTC 440 ms. This is an abnormal EKG. This is not a STEMI. - Radiology Data Radiology results: report reviewed, image reviewed CT ABDOMEN AND PELVIS WITH CONTRAST INDICATION / CLINICAL INFORMATION: Nausea, vomiting and hematemesis. TECHNIQUE: Axial CT images were obtained through the abdomen and pelvis after Omnipaque 300, 100 cc IV contrast. All CT scans at this location are performed using CT dose reduction for ALARA by means of automated exposure control. COMPARISON: None available. FINDINGS: LOWER CHEST: Small hiatal hernia. LIVER: Diffuse fatty infiltration of the liver and underlying cirrhosis remain. GALLBLADDER: No significant abnormality. BILE DUCTS: No significant abnormality. PANCREAS: Persistent changes of chronic pancreatitis with dilatation of the p ancreatic duct originating at the pancreatic head where a 7.5 mm stone is unchanged. Parenchymal atrophy is present distally the region of the stone. SPLEEN: No significant abnormality. ADRENALS: No significant abnormality. RIGHT KIDNEY / URETER: No significant abnormality. LEFT KIDNEY / URETER: No significant abnormality. STOMACH / SMALL BOWEL: No significant abnormality. COLON: No significant abnormality. APPENDIX: No significant abnormality. PERITONEUM: No free fluid. No free air. No fluid collection. LYMPH NODES: No significant adenopathy. VASCULAR STRUCTURES: No significant abnormality. URINARY BLADDER: No significant abnormality. REPRODUCTIVE ORGANS: Mild prostate enlargement is un changed. ADDITIONAL FINDINGS: None. SKELETAL SYSTEM: Chronic appearing wedging L2. IMPRESSION: 1. Fatty liver with superimposed hepatic cirrhosis is unchanged. 2. Persistent changes of chronic pancreatitis with large ductal stone, associated ductal dilatation and superimposed parenchymal atrophy. 3. No new abnormality. Signer Name: Delta Cho MD Signed: 01/29/2021 12:15 PM Workstation Name: [id number] CHEST 1 VIEW INDICATION: Abdominal Pain. COMPARISON: None FINDINGS: Support devices: None. Heart: Within normal limits. Lungs/Pleura: No acute air space or interstitial disease. Additional findings: None. IMPRESSION: No acute findings. Signer Name: Chano Light Jr, MD Signed: 01/29/2021 11:37 AM Workstation Name: [id number] CT ABDOMEN AND PELVIS WITH CONTRAST INDICATION / CLINICAL INFORMATION: Abd pain, hx of pancreatitis. TECHNIQUE: Axial CT images were obtained through the abdomen and pelvis after 100 cc of Omnipaque [address] scans at [facility] are performed using CT dose reduction for ALARA by means of automated exposure control. COMPARISON: None available. FINDINGS: LOWER CHEST: Unremarkable LIVER: Hepatic steatosis. GALLBLADDER/BILIARY TREE: Gallbladder is unremarkable. No common bile duct dilatation. PANCREAS: There is marked dilation of the pancreatic duct distal to an 8 mm calcification in the pancreatic head. Multiple additional pancreatic calcifications are present. These findings are most compatible with sequela of prior pancreatitis. There is no significant peripancreatic inflammatory stranding or organized fluid collection. SPLEEN: Unremarkable ADRENALS: Unremarkable KIDNEYS / URETER: Unremarkable URINARY BLADDER: Unremarkable REPRODUCTIVE ORGANS: Unremarkable STOMACH / SMALL BOWEL: Stomach and small bowel are normal in caliber. No evidence of bowel inflammation. COLON: The colon is unremarkable. The appendix is normal in caliber. LYMPH NODES: No significant adenopathy. VASCULATURE: Mild atherosclerotic calcification without acute abnormality. OTHER: No free air, free fluid, or focal fluid collection is identified. SKELETAL SYSTEM: Chronic appearing superior endplate compression deformity of L2. No acute process. IMPRESSION: 1. No acute process of the abdomen or pelvis. 2. Findings compatible with sequela of prior pancreatitis, as above. No peripancreatic inflammatory stranding or organized peripancreatic fluid collection. 3. Hepatic steatosis. Signer Name: Joaquín Thomas MD Signed: 01/27/2020 3:17 PM Workstation Name: [id number] CT ABDOMEN AND PELVIS WITH CONTRAST HISTORY: abd pain with n/v. COMPARISON: None. TECHNIQUE: CT images of the abdomen and pelvis were obtained following administration of intravenous contrast. All CT scans at this location are performed using CT dose reduction for ALARA by means of automated exposure control. CONTRAST: 100 ml of intravenous contrast administered. FINDINGS: Lungs/bones: Lung bases are clear Abdomen/pelvis: Diffuse fatty infiltration the liver. Nodularity seen throughout the liver suggesting cirrhosis. No enhancing liver lesion is seen. There is marked dilatation of the pancreatic duct. Multiple pancreatic calcifications are seen. Possible obstructing duct in the proximal pancreatic duct near the pancreatic head measures 9 mm. Adrenal glands appear normal. Kidneys appear normal. No bowel obstruction is seen. No focal inflammatory change. No free air IMPRESSION: 1. Prior pancreatitis. There is marked dilatation of the pancreatic duct with large stone near the pancreatic head and neck. This was also seen on prior examination. 2. Diffuse fatty infiltration liver. Nodular surface suggesting cirrhosis. 3. Hepatic steatosis. Signer Name: Yomi Day MD Signed: 11/06/2020 8:07 PM Workstation Name: [id number] Critical care attestation.: If time is entered above; I have spent that time in minutes in the direct care of this critically ill patient, excluding procedure time. ED Disposition Is pt being admited?: No Does the pt Need Aspirin: No
[2021-01-29 11:56] LABS: Basophils # (Auto) 0.1 K/mm3 (0.0-0.1); Eosinophils % (Auto) 0.2 % (0.0-4.3); Hematocrit 37.6 % (35.5-45.6); Hemoglobin 12.2 gm/dl (11.8-15.2); Lymphocytes # (Auto) 1.7 K/mm3 (1.2-5.4); Lymphocytes % (Auto) 16.1 % (13.4-35.0); Mean Corpuscular HGB Conc 32 % (32-34); Mean Corpuscular Volume 97 fl (84-94); Monocytes # (Auto) 0.7 K/mm3 (0.0-0.8); Monocytes % (Auto) 6.6 % (0.0-7.3); Platelet Count 150 K/mm3 (140-440); Red Blood Count 3.86 M/mm3 (3.65-5.03); Red Cell Distribution Width 15.2 % (13.2-15.2)
[2021-01-29] MEDS: PANTOPRAZOLE 40 MG INJ IV ONE (12:05)
[2021-01-29] MEDS: MORPHINE 4 MG/1 ML INJ IV ONE (12:05)
[2021-01-29 12:06] LABS: INR 1.05 (0.87-1.13)
[2021-01-29] MEDS: LACTATED RINGERS 1,000 ML IV ONE (12:06)
[2021-01-29] MEDS: ONDANSETRON 4 MG/2 ML INJ IV ONE (12:06)
[2021-01-29] MEDS: SODIUM CHLORIDE 0.9% 500 ML 500 ML IV ONE (12:06)
[2021-01-29 12:16] LABS: Alanine Aminotransferase 36 units/L (7-56); Albumin 4.4 g/dL (3.9-5); Blood Urea Nitrogen 13 mg/dL (9-20); Hemolysis Index 32
[2021-01-29 12:18] LABS: BUN/Creatinine Ratio 19; Bilirubin,Direct < 0.2 mg/dL (0-0.2)
[2021-01-29 12:24] LABS: Bilirubin,Urine NEG (Negative); Blood,Urine NEG (Negative); Color,Urine Yellow (Yellow); Mucus,Urine FEW /HPF; Protein,Urine <15 mg/dL mg/dL (Negative); RBC,Urine < 1.0 /HPF (0.0-6.0); Urobilinogen,Urine < 2.0 mg/dL (<2.0)
--- NOTE | 2021-01-29 12:42 | XRay Report ---
CHEST 1 VIEW INDICATION: Abdominal Pain. COMPARISON: None FINDINGS: Support devices: None. Heart: Within normal limits. Lungs/Pleura: No acute air space or interstitial disease. Additional findings: None. IMPRESSION: No acute findings. Signer Name: Chano Light Jr, MD Signed: 01/29/2021 12:37 PM Workstation Name: [id number]
[2021-01-29] MEDS: THIAMINE 100 MG, FOLIC ACID 1 MG, MULTIPLE VITAMIN INJ, ADULT 10 ML in SODIUM CHLORIDE ... IV ONE (13:19)
--- NOTE | 2021-01-29 13:19 | Cat Scan Report ---
CT ABDOMEN AND PELVIS WITH CONTRAST INDICATION / CLINICAL INFORMATION: Nausea, vomiting and hematemesis. TECHNIQUE: Axial CT images were obtained through the abdomen and pelvis after Omnipaque 300, 100 cc I V contrast. All CT scans at this location are performed using CT dose reduction for ALARA by means o f automated exposure control. COMPARISON: None available. FINDINGS: LOWER CHEST: Small hiatal hernia. LIVER: Diffuse fatty infiltration of the liver and underlying cirrhosis remain. GALLBLADDER: No significant abnormality. BILE DUCTS: No significant abnormality. PANCREAS: Persistent changes of chronic pancreatitis with dilatation of the pancreatic duct originati ng at the pancreatic head where a 7.5 mm stone is unchanged. Parenchymal atrophy is present distally the region of the stone. SPLEEN: No significant abnormality. ADRENALS: No significant abnormality. RIGHT KIDNEY / URETER: No significant abnormality. LEFT KIDNEY / URETER: No significant abnormality. STOMACH / SMALL BOWEL: No significant abnormality. COLON: No significant abnormality. APPENDIX: No significant abnormality. PERITONEUM: No free fluid. No free air. No fluid collection. LYMPH NODES: No significant adenopathy. VASCULAR STRUCTURES: No significant abnormality. URINARY BLADDER: No significant abnormality. REPRODUCTIVE ORGANS: Mild prostate enlargement is unchanged. ADDITIONAL FINDINGS: None. SKELETAL SYSTEM: Chronic appearing wedging L2. IMPRESSION: 1. Fatty liver with superimposed hepatic cirrhosis is unchanged. 2. Persistent changes of chronic pancreatitis with large ductal stone, associated ductal dilatation a nd superimposed parenchymal atrophy. 3. No new abnormality. Signer Name: Delta Cho MD Signed: 01/29/2021 1:15 PM Workstation Name: [email or web address] Lian Shi Dai
[2021-01-29] MEDS: LACTATED RINGERS 2,000 ML IV ONE (13:20)
[2021-01-29 15:06] LABS: Blood Urea Nitrogen 11 mg/dL (9-20); Calcium 7.3 mg/dL (8.4-10.2); Hemolysis Index 9
[2021-01-29 15:08] LABS: BUN/Creatinine Ratio 16
[2021-01-29] MEDS: SODIUM CHLORIDE 0.9% 1000 ML 1,000 ML IV ONE (16:43)
[2021-01-29] MEDS: MORPHINE 2 MG/1 ML INJ IV ONE (17:04)
[2021-01-29 18:16] LABS: Blood Urea Nitrogen 9 mg/dL (9-20); Hemolysis Index 10
[2021-01-29 18:18] LABS: BUN/Creatinine Ratio 13
[2021-01-29 18:33] VITALS: BP 126/62
--- NOTE | 2021-01-30 14:36 | Electrocardiograph Report ---
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
== END 2021-01-29 19:06 | disposition admitted as inpatient to this hospital (09) ==
LOC: ED 10:30
DX: K70.9 Alcoholic liver disease, unspecified (principal); K86.0 Alcohol-induced chronic pancreatitis; I10 Essential (primary) hypertension; E11.9 Type 2 diabetes mellitus without complications; K21.9 Gastro-esophageal reflux disease without esophagitis; J45.909 Unspecified asthma, uncomplicated; F17.290 Nicotine dependence, other tobacco product, uncomplicated; Z98.890 Other specified postprocedural states
CPT/HCPCS: 36415; 71045; 74177; 80048; 80076; 81001; 83690; 85025; 85610; 93005; 96361; 96365; 96366; 96375; 99285; C9113; J2270; J2405; J3411; J3490; J7030; J7040; J7120; Q9967; 80320; Q0162; G0480